=== PATIENT | female | born 1970 | race Caucasian/White ===

== ENCOUNTER 2017-02-27 10:14 | Emergency (ER) | payer OTHER ==
[~2017-02-27] VITALS: Ht 167.6 cm; Wt 65.8 kg
[2017-02-27 11:19] VITALS: BP 125/72
== END 2017-02-27 11:27 | disposition home or self-care (01) ==
LOC: ER 10:18
DX: R10.13 Epigastric pain (principal); Z90.89 Acquired absence of other organs
CPT/HCPCS: 84703; 99283; A4606; Z7610

== ENCOUNTER 2017-04-10 15:15 | Emergency (ER) | payer OTHER ==
[~2017-04-10] VITALS: Ht 165.1 cm; Wt 75.3 kg
[2017-04-10] MEDS ORDERED: ONDANSETRON 4 MG TAB.RAPDIS SL ONE (16:00)
[2017-04-10] MEDS ORDERED: ONDANSETRON 4 MG TAB.RAPDIS ONE (16:04)
[2017-04-10 16:11] LABS: BASOPHILS # (AUTO) 0.1 /CMM (0.0-0.2); BASOPHILS % (AUTO) 0.6 % (0.0-2.0); EOSINOPHILS # (AUTO) 0.1 /CMM (0.0-0.7); EOSINOPHILS % (AUTO) 0.8 % (0.0-6.0); HEMATOCRIT 33 % (33-45); HEMOGLOBIN 10.4 g/dL (11.5-14.8); LYMPHOCYTES # (AUTO) 2.1 /CMM (0.8-4.8); LYMPHOCYTES % (AUTO) 24.2 % (20.0-44.0); MEAN CORPUSCULAR HEMOGLOBIN 23 PG (26.0-33.0); MEAN CORPUSCULAR HGB CONC 32 g/dl (31.0-36.0); MEAN CORPUSCULAR VOLUME 71 fL (82-100); MONOCYTES # (AUTO) 0.9 /CMM (0.1-1.30); NEUTROPHILS # (AUTO) 5.4 /CMM (1.8-8.9); NEUTROPHILS % (AUTO) 64.4 % (43.0-81.0); PLATELET COUNT (AUTO) 405 /CMM (150-450); RDW COEFFICIENT OF VARIATION 22.3 (11.5-15.0); RED BLOOD CELL COUNT(AUTO) 4.63 MIL/uL (4.0-5.2); WHITE BLOOD COUNT (AUTO) 8.6 K/uL (4.3-11.0)
[2017-04-10 16:13] LABS: APPEARANCE,URINE Clear (CLEAR); BILIRUBIN,URINE Negative (NEGATIVE); BLOOD, URINE Negative Ery/uL (NEGATIVE); COLOR,URINE Yellow (YELLOW); KETONES,URINE Negative (NEGATIVE); LEUKOCYTE ESTERASE ,URINE Negative (NEGATIVE); NITRITE, URINE Negative (NEGATIVE); PH,URINE 5.5 (5.0-8.0); PROTEIN,URINE Negative (NEGATIVE); UGLUCOSE Negative (NEGATIVE); UROBILINOGEN,URINE 0.2 EU/dL (0.2)
[2017-04-10 16:20] LABS: CREATININE 0.6 mg/dL (0.6-1.3); POTASSIUM 3.5 mmol/L (3.5-5.1)
[2017-04-10 16:26] LABS: ALBUMIN 4.1 g/dL (3.4-5.0); BILIRUBIN,TOTAL 0.1 mg/dL (0.2-1.0); TOTAL PROTEIN, SERUM 7.9 g/dL (6.4-8.2)
[2017-04-10 16:46] VITALS: BP 122/80
--- NOTE | 2017-04-10 16:48 | NUR ---
Patient discharged to home in stable condition. Written and verbal after care instructions given. Patient verbalizes understanding of instruction.
== END 2017-04-10 16:49 | disposition home or self-care (01) ==
LOC: ER 15:31
DX: R10.13 Epigastric pain (principal); Z90.89 Acquired absence of other organs
CPT/HCPCS: 36415; 80048; 80076; 81001; 83690; 84703; 85025; 99284; A4606; Q0162; Z7610; 81000-TC

== ENCOUNTER 2017-07-30 09:27 | Emergency (ER) | payer OTHER ==
[~2017-07-30] VITALS: Ht 165.1 cm; Wt 61.2 kg
[2017-07-30 09:38] VITALS: BP 113/76
== END 2017-07-30 10:14 | disposition home or self-care (01) ==
LOC: ER 09:29
DX: J40 Bronchitis, not specified as acute or chronic (principal); N92.0 Excessive and frequent menstruation with regular cycle
CPT/HCPCS: A4606; Z7610